=== PATIENT | female | born 2000 | race Two or more races ===

== ENCOUNTER 2025-02-17 15:06 | Emergency (ER) | payer OTHER ==
[~2025-02-17] VITALS: Ht 157.5 cm; Wt 59.0 kg
[2025-02-17 15:10] VITALS: BP 99/60; TEMP 97.9
[2025-02-17] MEDS ORDERED: BUSP5TAB3 PO (15:45)
[2025-02-17 16:03] VITALS: O2SAT 98
== END 2025-02-17 16:04 | disposition home or self-care (01) ==
LOC: ER 15:08
DX: F32.A Depression, unspecified (principal); Z76.0 Encounter for issue of repeat prescription; F17.200 Nicotine dependence, unspecified, uncomplicated; F41.9 Anxiety disorder, unspecified; Z59.00 Homelessness unspecified; Z79.899 Other long term (current) drug therapy

== ENCOUNTER 2025-03-26 16:54 | Emergency (ER) | payer OTHER ==
[~2025-03-26] VITALS: Ht 157.5 cm; Wt 54.4 kg
[~2025-03-26 16:54] MED LIST: BUSP5TAB3 PO
[2025-03-26 17:14] VITALS: BP 103/67; TEMP 98.5
[2025-03-26] MEDS ORDERED: LEVO1.5T38 PO (17:34)
[2025-03-26 17:43] VITALS: O2SAT 96
== END 2025-03-26 17:45 | disposition home or self-care (01) ==
LOC: ER 17:03
DX: Z30.012 Encounter for prescription of emergency contraception (principal); F17.200 Nicotine dependence, unspecified, uncomplicated; Z79.3 Long term (current) use of hormonal contraceptives; Z79.899 Other long term (current) drug therapy

== ENCOUNTER 2025-04-08 16:28 | Emergency (ER) | payer OTHER ==
[~2025-04-08] VITALS: Ht 157.5 cm; Wt 56.2 kg
[~2025-04-08 16:28] MED LIST changes: +LEVO1.5T38 PO
[2025-04-08 16:38] VITALS: BP 101/58; TEMP 98.9
[2025-04-08] MEDS ORDERED: IBUP-1953 PO (17:42)
[2025-04-08 17:47] VITALS: O2SAT 97
== END 2025-04-08 17:48 | disposition home or self-care (01) ==
LOC: ER 16:31
DX: S80.01XA Contusion of right knee, initial encounter (principal); F17.200 Nicotine dependence, unspecified, uncomplicated; F41.9 Anxiety disorder, unspecified; Z79.3 Long term (current) use of hormonal contraceptives; Z79.899 Other long term (current) drug therapy; W01.0XXA Fall on same level from slipping, tripping and stumbling without subsequent striking against object, initial encounter; Y93.89 Activity, other specified; Y92.091 Bathroom in other non-institutional residence as the place of occurrence of the external cause; Y99.8 Other external cause status
CPT/HCPCS: 73564-TC